=== PATIENT | female | born 2000 | race Caucasian/White ===

== ENCOUNTER 2022-05-16 21:13 | Emergency (ER) | payer OTHER ==
[~2022-05-16] VITALS: Ht 157.5 cm; Wt 78.0 kg
[2022-05-16 21:14] VITALS: BP 138/92
--- NOTE | 2022-05-16 21:19 | NUR ---
TO BED 12 FOLLOWING TRIAGE
[2022-05-16 22:09] LABS: BASOPHILS % (AUTO) 0.1 % (0.0-2.0); EOSINOPHILS % (AUTO) 0.1 % (0.0-4.0); HEMATOCRIT 42.9 % (36-48); HEMOGLOBIN 14.7 g/dL (12.0-16.0); LYMPHOCYTES # (AUTO) 2.4 K/uL (2.5-16.5); LYMPHOCYTES % (AUTO) 22.1 % (20.5-51.1); MEAN CORPUSCULAR HEMOGLOBIN 29 pg (27-31); MEAN CORPUSCULAR HGB CONC 34 g/dL (33-37); MEAN CORPUSCULAR VOLUME 83.3 fL (80-94); MONOCYTES # (AUTO) 0.7 K/uL (0.8-1.0); MONOCYTES % (AUTO) 6.7 % (1.7-9.3); NEUTROPHILS # (AUTO) 7.8 K/uL (1.8-7.7); PLATELET COUNT (AUTO) 432 K/uL (140-450); RED BLOOD CELL COUNT(AUTO) 5.15 MIL/uL (4.20-5.40); RED CELL DISTRIBUTION WIDTH 13.7 % (11.6-13.7)
[2022-05-16 22:17] LABS: CARBON DIOXIDE 24.8 mmol/L (21-32); CREATININE 0.9 mg/dL (0.6-1.3); POTASSIUM 3.8 mmol/L (3.5-5.1)
[2022-05-16] MEDS ORDERED: ALBUTEROL SULFATE/IPRATROPIU 3 ML SOL IH ONE (22:40)
--- NOTE | 2022-05-16 22:46 | NUR ---
Respiratory Therapist at bedside for respiratory intervention.
[2022-05-16] MEDS: LORazepam 2 MG/ML VIAL IVP ONE (22:55)
--- NOTE | 2022-05-16 22:55 | NUR ---
2228 ATTEMPTED TO GIVE HHNTX PER DR CARD. PT FELT ANXIOUS AND TOOK IT OFF. PATIENTS BREATH SOUNDS WERE CLEAR BILAT. SATS 100% ON ROOM AIR
--- NOTE | 2022-05-16 22:55 | NUR ---
X-Ray at bedside.
--- NOTE | 2022-05-16 23:01 | NUR ---
patient urinated and did not give sample. patient reports to try again "but later".
[2022-05-16 23:20] LABS: SALICYLATE < 2.8 mg/dL (2.8-20.0)
[2022-05-17] MEDS ORDERED: HYDR-636 PO (00:03)
[2022-05-17] MEDS ORDERED: ALBU0.0912 IH (00:03)
--- NOTE | 2022-05-17 00:48 | NUR ---
patient unable to provide urine and refused. patient had gone pee again.
[2022-05-17] MEDS: LORazepam 1 MG TAB PO ONE (00:51)
[2022-05-17 01:12] VITALS: BP 126/90
--- NOTE | 2022-05-17 01:12 | NUR ---
Patient discharged. Written and verbal after care instructions given and explained shortness of breath. Patient alert, oriented and verbalized understanding of instructions. Ambulatory with steady gait. All questions addressed prior to discharge. ID band removed. Patient advised to follow up with PMD. Rx of albuterol sulfate and Hydroxyzine HCL given. Patient educated on indication of medication including possible reaction and side effects. Opportunity to ask questions provided and answered.
== END 2022-05-17 01:12 | disposition home or self-care (01) ==
LOC: MED 21:13
DX: F41.9 Anxiety disorder, unspecified (principal); Z20.822 Contact with and (suspected) exposure to COVID-19; R06.02 Shortness of breath; F12.90 Cannabis use, unspecified, uncomplicated
CPT/HCPCS: 36415; 71045; 80048; 83735; 83880; 84484; 84703; 85025; 85379; 87426; 87804; 93005; 96374; 99285; G0480; G0482; J2060

== ENCOUNTER 2022-05-17 13:27 | Emergency (ER) | payer OTHER ==
[~2022-05-17] VITALS: Ht 152.4 cm; Wt 63.5 kg
[~2022-05-17 13:27] MED LIST: ALBU0.0912 IH; HYDR-636 PO
[2022-05-17 13:39] VITALS: BP 124/89
--- NOTE | 2022-05-17 13:45 | NUR ---
21 y/o female, c/o neck and posterior head pain that started yesterday, denies synope, loc or head/neck injury. denies nausea, vomiting, diarrhea. skin is pink/warm/dry. a&o x4, hungarian speaking, with even and steady gait. lungs clear bl, heart rate even and tachy at 132. pt denies dysuria, hematuria, urinary frequency or retention, or anyone sick in the household with the same symptoms. pt denies any fever, cp, sob, or cough at this time. pt states pain is 10/10 at this time. ermd made aware of pt. pmh: denies nka med: unable to recall name of medication
[2022-05-17] MEDS ORDERED: NACL 0.9% 1,000 ML IV ONE ×3 (14:40→19:25)
[2022-05-17 16:21] LABS: BASOPHILS % (AUTO) 0.2 % (0.0-2.0); EOSINOPHILS % (AUTO) 0.3 % (0.0-4.0); HEMATOCRIT 42.1 % (36-48); HEMOGLOBIN 14.2 g/dL (12.0-16.0); LYMPHOCYTES % (AUTO) 28.2 % (20.5-51.1); MEAN CORPUSCULAR HEMOGLOBIN 29 pg (27-31); MEAN CORPUSCULAR HGB CONC 34 g/dL (33-37); MEAN CORPUSCULAR VOLUME 85.2 fL (80-94); MONOCYTES # (AUTO) 0.8 K/uL (0.8-1.0); MONOCYTES % (AUTO) 10.7 % (1.7-9.3); NEUTROPHILS # (AUTO) 4.4 K/uL (1.8-7.7); NEUTROPHILS % (AUTO) 60.6 % (42.2-75.2); PLATELET COUNT (AUTO) 386 K/uL (140-450); RED BLOOD CELL COUNT(AUTO) 4.95 MIL/uL (4.20-5.40); RED CELL DISTRIBUTION WIDTH 14.2 % (11.6-13.7); WHITE BLOOD COUNT (AUTO) 7.2 K/uL (4.8-10.8)
[2022-05-17 16:51] LABS: ALBUMIN 4.2 g/dL (3.4-5.0); ANION GAP 14.9 (8-16); CARBON DIOXIDE 25.7 mmol/L (21-32); CREATININE 0.9 mg/dL (0.6-1.3); POTASSIUM 3.6 mmol/L (3.5-5.1); THYROID STIMULATING HORMONE 1.09 uIU/mL (0.34-3.74); TOTAL BILIRUBIN 0.4 mg/dL (0.0-1.0)
--- NOTE | 2022-05-17 18:57 | NUR ---
PT AMBULATED TO BED 2
--- NOTE | 2022-05-17 19:18 | NUR ---
DR HOPKINS AT BEDSIDE EXAMINING PT
[2022-05-17 20:33] LABS: BARBITURATE, URINE NEGATIVE ng/ml (NEG <=200); BENZODIAZEPINE, URINE POSITIVE ng/mL (NEG <=200); CANNABINOID, URINE NEGATIVE ng/mL (NEG <=50); COCAINE, URINE NEGATIVE ng/mL (NEG <=300); OPIATE, URINE NEGATIVE ng/mL (NEG <=2000); PHENCYCLIDINE SCREEN,URINE NEGATIVE ng/mL (NEG <=25)
--- NOTE | 2022-05-17 20:38 | NUR ---
covid/delfino and flu swabs collected and walked to lab
[2022-05-17 20:49] LABS: APPEARANCE,URINE CLEAR (CLEAR); BILIRUBIN,URINE NEGATIVE (NEGATIVE); BLOOD, URINE NEGATIVE (NEGATIVE); COLOR,URINE YELLOW (YELLOW); LEUKOCYTE ESTERASE ,URINE NEGATIVE (NEGATIVE); NITRITE, URINE NEGATIVE (NEGATIVE); UGLUCOSE NEGATIVE (NEGATIVE)
[2022-05-17 21:05] VITALS: BP 120/76
--- NOTE | 2022-05-17 21:07 | NUR ---
Patient discharged with v/s stable. Written and verbal after care instructions given and explained. Patient verbalized understanding. Ambulatory with steady gait. All questions addressed prior to discharge. Advised to follow up with PMD. vss, a/ox4, unlabored breathing, ambulatory , and calm demeanor.
== END 2022-05-17 21:07 | disposition home or self-care (01) ==
LOC: MED 13:27
DX: R51.9 Headache, unspecified (principal); Z20.822 Contact with and (suspected) exposure to COVID-19; R00.2 Palpitations; R00.0 Tachycardia, unspecified; R42 Dizziness and giddiness; F17.200 Nicotine dependence, unspecified, uncomplicated; Z79.899 Other long term (current) drug therapy
CPT/HCPCS: 36415; 80053; 80305; 81003; 81025; 84443; 85025; 87426; 87804; 93005; 96360; 99284; J7030

== ENCOUNTER 2023-02-22 17:00 | Emergency (ER) | payer OTHER ==
[~2023-02-22] VITALS: Ht 152.4 cm; Wt 86.2 kg
[2023-02-22 17:34] VITALS: BP 154/94
--- NOTE | 2023-02-22 19:45 | NUR ---
Patient resting in bed, A/Ox4, chest rise and fall symmetrical, no s/s of distress, on monitor.
--- NOTE | 2023-02-22 20:00 | NUR ---
ER physician assessing patient.
--- NOTE | 2023-02-22 20:45 | NUR ---
Emeka lopes in [facility] - 02/22/23 at 2105 by [id number] ER physician assessing patient.
[2023-02-22] MEDS ORDERED: ATA25 PO (20:49)
[2023-02-22] MEDS ORDERED: IBUP-2213 PO (20:49)
[2023-02-22 21:03] VITALS: BP 131/86
== END 2023-02-22 21:03 | disposition home or self-care (01) ==
LOC: MED 17:00
DX: R07.89 Other chest pain (principal); F41.9 Anxiety disorder, unspecified; F15.90 Other stimulant use, unspecified, uncomplicated; Z79.899 Other long term (current) drug therapy
CPT/HCPCS: 93005; 99283